=== PATIENT | male | born 1935 | race Caucasian/White ===

== ENCOUNTER → 2017-05-27 | Day surgery (SDC) | payer MEDICARE, OTHER ==
[~2017-05-27] VITALS: Ht 170.2 cm; Wt 67.7 kg
[~2017-05-27] MED LIST: ALLER-FLO15.8 ML NOSE; CRESTOR5 MG PO; FISH OIL1000 MG PO; LEVOTHYROXINE75 MCG PO; LIPITOR40 MG PO; PRILOSEC20 MG PO
== END | disposition disaster alternative care site (69) ==
LOC: GPOC 05-24 09:00 → GEND 08:29 → GPOC 08:30
PROC: 0DB48ZX Excision of Esophagogastric Junction, Via Natural or Artificial Opening Endoscopic, Diagnostic (ICD-10-PCS; principal; 2017-05-27)
DX: K22.10 Ulcer of esophagus without bleeding (principal); M19.90 Unspecified osteoarthritis, unspecified site; K21.9 Gastro-esophageal reflux disease without esophagitis; I25.10 Atherosclerotic heart disease of native coronary artery without angina pectoris; E78.00 Pure hypercholesterolemia, unspecified; I25.2 Old myocardial infarction; E03.9 Hypothyroidism, unspecified; E78.5 Hyperlipidemia, unspecified; G47.33 Obstructive sleep apnea (adult) (pediatric); Z85.01 Personal history of malignant neoplasm of esophagus; Z95.1 Presence of aortocoronary bypass graft; Z98.890 Other specified postprocedural states; Z79.899 Other long term (current) drug therapy; Z88.8 Allergy status to other drugs, medicaments and biological substances
CPT/HCPCS: J2001; J7030; Q9967